=== PATIENT | female | born 1980 | race Caucasian/White ===

== ENCOUNTER 2018-07-14 11:24 | Day surgery (SDC) | payer MEDICAID ==
[~2018-07-14] VITALS: Ht 157.5 cm; Wt 66.7 kg
[2018-07-14 11:29] VITALS: Ht 157.5 cm; Wt 66.7 kg
[2018-07-14 12:40] LABS: BASOPHIL % 0.5 % (0-2); PLATELET COUNT 264 x10^3mcL (130-400); RED CELL DISTRIBUTION WIDTH 12.6 % (11.5-14.5)
[2018-07-14 13:45] LABS: microscopic required? YES; urine erythrocyte 3+ (NEGATIVE)
[2018-07-14 13:50] VITALS: BP 118/43
[2018-07-14 13:59] LABS: CALCIUM 8.2 mg/dL (8.5-10.1); CARBON DIOXIDE 29.1 mmol/L (21-32); CHLORIDE SERUM 102 mmol/L (98-107); CREATININE SERUM 0.6 mg/dL (0.6-1.0); GFR1 > 60 mL/min; GLUCOSE SERUM 93 mg/dL (74-106); POTASSIUM SERUM 3.6 mmol/L (3.5-5.1); SODIUM SERUM 138 mmol/L (136-145)
[2018-07-14 14:03] LABS: ALBUMIN 3.6 g/dL (3.4-5.0); ALKALINE PHOSPHATASE 68 U/L (46-116); ALT/SGPT 32 U/L (14-59); AST/SGOT 20 U/L (15-37); BILIRUBIN TOTAL 0.45 mg/dL (0.20-1.00); TOTAL PROTEIN, SERUM 7.8 g/dL (6.4-8.2)
[2018-07-14 16:54] VITALS: BP 119/71
== END 2018-07-14 16:50 | disposition home or self-care (01) ==
LOC: ED 11:24 → MU 11:40 → ED 11:40 → DS 11:40 → MU 13:10 → DS 16:50
PROVIDERS: Emergency Medicine; Obstetrics & Gynecology
PROC: 10D17Z9 Manual Extraction of Products of Conception, Retained, Via Natural or Artificial Opening (ICD-10-PCS; principal; 2018-07-14 14:00)
DX: O02.1 Missed abortion (principal)
CPT/HCPCS: C1758; J1885; J3010; J3490